=== PATIENT | male | born 1995 | race African-American/Black ===

== ENCOUNTER 2019-03-04 08:16 | Outpatient (CLI) | payer OTHER ==
--- NOTE | 2019-03-04 10:38 | MRI Report ---
Reason: RT KNEE INSTABILITY Procedure Date: 03/04/2019 Accession Number: [id number] / [id number] Procedure: MRI - Knee RT W/O CPT Code: Final Report FULL RESULT: EXAM: RIGHT KNEE MRI WITHOUT CONTRAST EXAM DATE: 03/04/2019 09:31 AM. CLINICAL HISTORY: Right knee instability. COMPARISON: None. TECHNIQUE: Multiplanar, multisequence T1-weighted and fluid-sensitive sequences of the knee without contrast. Other: None. FINDINGS: Cruciate ligaments: The anterior and posterior cruciate ligaments appear intact. Medial meniscus: Small amount of intrasubstance degeneration. No tear identified. Lateral meniscus: Intact. No tear is identified. Collateral ligaments: The medial and fibular collateral ligaments appear intact. Bones and articular surfaces: Focal cartilage thinning and fissuring at the central trochlea with small focus of subchondral marrow edema. Mild surface irregularity over the medial facet of the patella. No significant joint effusion. Medial and lateral compartments demonstrate no significant articular cartilage defect. Extensor mechanism: The patellar tendon and quadriceps insertion appear intact. IMPRESSION: 1. 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 RADIA ADDENDUM: 03/04/19 10:03
== END 2019-03-04 08:17 | disposition home or self-care (01) ==
LOC: DI 08:16
PROVIDERS: ATTEND Orthopaedic Surgery
DX: M94.261 Chondromalacia, right knee (principal)